=== PATIENT | male | born 1985 | race Caucasian/White ===

== ENCOUNTER 2023-05-18 09:12 | Emergency (ER) | payer OTHER ==
[2023-05-18] MEDS ORDERED: Ibuprofen 200 MG TAB ONE (09:35)
[2023-05-18] MEDS ORDERED: HYDROcodone/Acetaminophen 5/325 mg Tablet ONE (09:35)
== END 2023-05-18 09:50 ==
LOC: ERS 09:12 → EDBD 09:12 → EEVIPCON 09:12 → ERS 09:50
DX: T22.231A Burn of second degree of right upper arm, initial encounter (principal); T24.211A Burn of second degree of right thigh, initial encounter; T22.151A Burn of first degree of right shoulder, initial encounter; T21.13XA Burn of first degree of upper back, initial encounter; T31.0 Burns involving less than 10% of body surface; X11.0XXA Contact with hot water in bath or tub, initial encounter
CPT/HCPCS: 99283